=== PATIENT | male | born 1960 | race Caucasian/White ===

== ENCOUNTER 2017-02-16 21:00 | Observation (INO) | payer MEDICARE, OTHER ==
[2017-02-16] MEDS ORDERED: ASPIRIN 81 MG CHEW PO STA (21:36)
[2017-02-16] MEDS ORDERED: IPRATROPIUM-ALBUTEROL 3 ML NEB INHALATION STA (21:36)
--- NOTE | 2017-02-16 21:41 | ED ---
Chest Pain HPI - General Chief Complaint: Chest Pain Stated Complaint: ETOH Time Seen by Provider: 02/16/17 21:04 Source: patient, family Mode of arrival: EMS - History of Present Illness Initial Comments: The patient is a 56 y/o male who presents to the ED with a chief complaint of chest pain and shortness of breath. Patient states that his symptoms have been present over the course the past 2 days. He states that yesterday he had multiple episodes of chest pain. He describes that the pain is located in the epigastric region, rising up into his chest. The patient notes that he has also had intermittent shortness of breath as well. The patient drinks a large amount of alcohol on a daily basis. He takes that he typically drinks a fifth of hard liquor. The patient notes that he has consumed at least a pint of hard liquor today. The patient denies any hx of cardiac disease. The patient notes that he does have a hx of cigarette use and abuse. The patient states that he has never had a cardiac stress test in the past. Patient notes that he does have a history of COPD for which he uses an inhaler. He states his inhaler was exhausted so he used an inhaler of her friend without relief of his symptoms. Patient states that his shortness of breath was so extreme that he could not catch his breath. He states that he received oxygen in route to the hospital and this helped to improve his symptoms. He states that he is asymptomatic here in the ED. He states that his last episode of chest pain was around 2pm today. - Related Data Home Medications Medication Instructions Recorded Confirmed Ascorbic Acid [Vitamin C] 500 mg PO DAILY 02/16/17 02/16/17 Allergies Allergy/AdvReac Type Severity Reaction Status Date / Time No Known Allergies Allergy Verified 02/16/17 22:44 Review of Systems ROS Statement: Those systems with pertinent positive or pertinent negative responses have been documented in the HPI. ROS Other: All systems not noted in ROS Statement are negative. Constitutional: Denies: fever, chills, weakness Eyes: Denies: vision change Respiratory: Reports: dyspnea. Denies: cough, wheezes, hemoptysis, stridor Cardiovascular: Reports: chest pain. Denies: palpitations, dyspnea on exertion , orthopnea, edema Endocrine: Denies: fatigue Gastrointestinal: Denies: abdominal pain, nausea, vomiting, diarrhea, constipation Genitourinary: Denies: urgency, dysuria, frequency, hematuria Musculoskeletal: Denies: back pain Skin: Denies: rash, lesions Neurological: Denies: headache, weakness Psychiatric: Denies: anxiety, depression EKG Findings - EKG Comments: EKG Findings:: EKG demonstrates NSR with a rate of 80. There are no concerning ST-T changes. The patient's QT interval is prolonged at 498. Past Medical History Additional Past Medical History / Comment(s): "bad" left knee, back fractures, bilateral arm fractures. History of Any Multi-Drug Resistant Organisms: None Reported Additional Past Surgical History / Comment(s): splenectomy Past Psychological History: No Psychological Hx Reported Smoking Status: Current every day smoker Past Alcohol Use History: Daily Past Drug Use History: None Reported General Exam General appearance: alert, in no apparent distress, appears intoxicated Head exam: Present: atraumatic, normocephalic Eye exam: Present: normal appearance, PERRL, EOMI. Absent: scleral icterus, conjunctival injection Pupils: Present: normal accommodation, other (pupils are 3mm, equal and reactive ) ENT exam: Present: normal exam, mucous membranes dry Neck exam: Present: normal inspection, full ROM Respiratory exam: Present: normal lung sounds bilaterally. Absent: respiratory distress, wheezes, rales, rhonchi, stridor, chest wall tenderness, accessory muscle use Cardiovascular Exam: Present: regular rate, normal rhythm, normal heart sounds GI/Abdominal exam: Present: soft. Absent: distended, tenderness, guarding, rebound Extremities exam: Present: normal inspection, full ROM, tenderness (tenderness noted in the right lateral shoulder) Neurological exam: Present: alert, oriented X3. Absent: CN II-XII intact Psychiatric exam: Present: normal affect, normal mood. Absent: homicidal ideation, suicidal ideation Skin exam: Present: warm, dry, intact Course Vital Signs 02/16/17 02/16/17 02/16/17 21:06 21:40 23:05 Temperature 98.4 F Pulse Rate 86 84 Respiratory 18 18 Rate Blood Pressure 134/68 O2 Sat by Pulse 96 Oximetry 02/16/17 02/16/17 02/16/17 23:10 23:18 23:20 Temperature Pulse Rate 88 65 Respiratory 16 Rate Blood Pressure 107/64 O2 Sat by Pulse 89 L 95 Oximetry Chest Pain [facility] Patient is a 56-year-old male who presents to ED with a chief complaint of chest pain and shortness of breath. Patient states that his symptoms have developed over the course of the past 2 days. Patient states his chest pain is intermittent in nature. It is located in the epigastric region and right abdomen. Patient notes that he has had shortness of breath associated with his pain as well. Patient has no history of all of them. Check an Alcohol level. Check CBC, CMP and Lipase. Check troponin. D-dimer. BNP. Chest x-ray. Patient is complaining of pain in the right calf region. Rule out DVT in this area. Patient was provided with ASA 324 mg by EMS in route to the hospital. Provide patient with DuoNeb treatment as well. 11:41 PM Patient had one additional episode of shortness of breath while here in the ED with desaturation to SpO2 of 90%. The patient has not had additional episodes of chest pain. Duoneb treatment helped to improve patient's symptoms. However, he still desaturates, particularly when sleeping. Lower extremity doppler was negative for DVT. Trop=Neg. D-Dimer=Neg. Will provide patient with Solumedrol and order scheduled breathing treatments. Provide patient with Doxycycline as well. Patient and updated of findings. Will keep for further evaluation and treatment. 11:[address] Omalley, who accepts placement of patient into Observation for further evaluation by Cardiology. Disposition Clinical Impression: Chest pain, Acute exacerbation of chronic obstructive pulmonary disease (COPD) Disposition: ADMITTED IP TO THIS [facility] Condition: Stable Decision to Admit Reason: Admit from EC Decision Date: 02/16/17 Decision Time: 23:50
[2017-02-16 21:58] LABS: CH 33.4; CHCM 33.4; HDW 2.69; HGB 12.5 gm/dL (13.0-17.5); MCHC 32.8 g/dL (31.0-37.0); MCV 100.8 fL (80.0-100.0); Macrocytosis Slight; Mean Platelet Volume 6.9; RBC 3.77 m/uL (4.30-5.90); RDW 14.9 % (11.5-15.5); WBC 7.1 k/uL (3.8-10.6)
[2017-02-16 22:11] LABS: ALT 37 U/L (21-72); AST 50 U/L (17-59); Alkaline Phosphatase 91 U/L (38-126); Anion Gap 12 mmol/L; Blood Urea Nitrogen 17 mg/dL (9-20); Calcium 9.2 mg/dL (8.4-10.2); Carbon Dioxide 21 mmol/L (22-30); Chloride 111 mmol/L (98-107); Glucose 126 mg/dL (74-99); Non-African American GFR(MDRD) >60 (>60 ml/min/1.73 sqM); Potassium 3.8 mmol/L (3.5-5.1); Sodium 144 mmol/L (137-145); Total Bilirubin 0.3 mg/dL (0.2-1.3); Total Protein 7.8 g/dL (6.3-8.2)
--- NOTE | 2017-02-16 22:11 | XR ---
EXAM: XR Chest, 2 Views CLINICAL HISTORY: Reason: Pain TECHNIQUE: Frontal and lateral views of the chest. COMPARISON: No relevant prior studies available. FINDINGS: Lungs: Unremarkable. No consolidation. Pleural space: Unremarkable. No pneumothorax. Heart: Unremarkable. No cardiomegaly. Mediastinum: Unremarkable. Bones/joints: Old healed rib fractures bilaterally. Cervicothoracic fusion, incompletely imaged. IMPRESSION: No acute cardiopulmonary disease.
--- NOTE | 2017-02-16 22:12 | XR ---
EXAM: XR Left Shoulder Complete, 2 or More Views CLINICAL HISTORY: Reason: Pain TECHNIQUE: Two or more views of the left shoulder. COMPARISON: No relevant prior studies available. FINDINGS: Bones/joints: Unremarkable. No acute fracture. No dislocation. Soft tissues: Unremarkable. IMPRESSION: Normal left shoulder
[2017-02-16 22:16] LABS: Prothrombin Time 10.1 sec (9.0-12.0)
[2017-02-16 22:22] LABS: Alcohol 225 mg/dL
[2017-02-16 22:33] LABS: Add Differential Manual Differential
[2017-02-16 22:36] LABS: Manual Review Performed; Nucleated Red Blood Cells 0 /100 WBC (0-0); Total Cells Counted 100
--- NOTE | 2017-02-16 23:01 | US ---
EXAM: US Left Lower Extremity, venous US Right Lower Extremity, venous CLINICAL HISTORY: Reason: Pain TECHNIQUE: Real-time ultrasound scan of the left lower extremity deep venous system with image documentation. Real-time ultrasound scan of the right lower extremity deep venous system with image documentation. COMPARISON: No relevant prior studies available. FINDINGS: Normal compression, augmentation, respiratory variation. No masses or adenopathy. IMPRESSION: No DVT.
[2017-02-16] MEDS ORDERED: methylPREDNISolone SOD SUCCI 125 MG/2 ML VIAL IV STA (23:39)
[2017-02-16] MEDS ORDERED: DOXYCYCLINE 50 MG CAP PO STA (23:44)
[2017-02-16] MEDS ORDERED: NALOXONE 0.4 MG/ML 1 ML VIAL IV PRN (23:52)
[2017-02-17 00:48] VITALS: BMI 22.4
--- NOTE | 2017-02-17 00:54 | XR ---
EXAM: XR Right Shoulder Complete, 2 or More Views CLINICAL HISTORY: Reason: Pain TECHNIQUE: Two or more views of the right shoulder. COMPARISON: No relevant prior studies available. FINDINGS: Bones/joints: No acute or healing fracture or malalignment. Hypertrophic changes at the distal clavicle suggested on the AP view but no significant narrowing of the subacromial space or convincing evidence for impingement. Type II acromion without subacromial enthesophyte. Soft tissues: Unremarkable. IMPRESSION: No acute osseous abnormality, malalignment or findings to explain the clinical presentation.
[2017-02-17] MEDS ORDERED: IPRATROPIUM-ALBUTEROL 3 ML NEB INHALATION SCH (08:00)
[2017-02-17 08:19] VITALS: BP 171/101; RESP 18; TEMP 97.9
--- NOTE | 2017-02-17 08:41 | P.HPIM ---
History of Present Illness H&P Date: 02/17/17 Chief Complaint: Shortness of breath 56-year-old male admitted via the EMS system after patient activated when he stated that he was complaining of shortness of breath and chest pain. Patient stated his symptoms have been ongoing for the last several days. Patient states he drinks a fifth of hard liquor daily has done so for several years. He just recently within the last 10 days was discharged from a rehab center for alcoholism and depression. Patient does state that he has not taken his blood pressure medication or his "puffer for his COPD because he ran out of them. Patient presented to the emergency room was seen in the emergency room and admitted to the observation unit. Cardiac enzymes 2 sets were negative. At the time of admission the patient stated his symptoms had resolved. Patient states he lives in [facility] and here visiting a friend on disability Review of Systems Essentially unremarkable except as mentioned in the present illness Past Medical History Additional Past Medical History / Comment(s): "bad" left knee, back fractures, bilateral arm fractures. History of Any Multi-Drug Resistant Organisms: None Reported Additional Past Surgical History / Comment(s): splenectomy Past Anesthesia/Blood Transfusion Reactions: No Reported Reaction Past Psychological History: No Psychological Hx Reported Smoking Status: Current every day smoker Past Alcohol Use History: Daily Past Drug Use History: None Reported - Past Family History Father History Unknown: Yes Medications and Allergies Home Medications Medication Instructions Recorded Confirmed Type Ascorbic Acid [Vitamin C] 500 mg PO DAILY 02/16/17 02/17/17 History Allergies Allergy/AdvReac Type Severity Reaction Status Date / Time pollen extracts AdvReac Rash/Hives Verified 02/17/17 00:42 Physical Exam Vitals: Vital Signs Temp Pulse Pulse Resp BP BP BP 02/17/17 08:00 97.9 F 77 18 171/101 02/17/17 04:00 98.4 F 69 16 155/88 02/17/17 01:29 16 02/17/17 00:29 66 16 102/65 02/17/17 00:10 97.9 F 70 18 120/79 Pulse Ox 02/17/17 08:00 98 02/17/17 04:00 98 02/17/17 01:29 02/17/17 00:29 95 02/17/17 00:10 97 Intake and Output 02/16/17 02/17/17 02/17/17 22:59 06:59 14:59 Other: # Voids 1 Weight 77.1 kg GENERAL APPEARANCE: 56 year old patient is alert, oriented, in no acute distress. VITAL SIGNS: Reviewed HEENT: Head is normocephalic and atraumatic. Pupils are equal and reactive. The nares are patent. Oropharynx is clear without lesions. NECK: Supple without lymphadenopathy. Traches midline. HEART: S1, S2. Regular rate and rhythm. Denying chest pain LUNGS: No crackles or wheezes are heard. On room air no conversational dyspnea noted no cough ABDOMEN: Soft, nontender, nondistended with good bowel sounds. No peritoneal signs. No palpable organomegaly or masses. EXTREMITIES: Normal skin color and turgor. No cyanosis, rash, ulceration, clubbing or edema. Radial pedal pulses are 2/4 bilaterally. NEUROLOGICAL: No focal deficits. Strength and sensation are grossly intact. Results CBC & Chem 7: 02/16/17 21:35 02/16/17 21:35 Thrombosis Risk Factor Assmnt - Choose All That Apply Each Factor Represents 1 point: Age 41-60 years Thrombosis Risk Factor Assessment Total Risk Factor Score: 1 Thrombosis Risk Factor Assessment Level: Low Risk Assessment and Plan Plan: Impression Present on admission shortness of breath suspect tracheal bronchitis Active tobacco abuse greater than a 20 year history 1 pack a day Chronic alcoholism daily consumption no evidence of impending DTs Hypertension COPD No evidence of a acute exacerbation Present on admission chest pain atypical features no evidence of acute coronary syndrome Plan Prepped for discharge home patient's been advised to stop smoking cigarettes Patient will follow-up with his PCP and [facility] The above dictated assessment and findings were discussed with dr dong Impression and the plan of care have been dictated as directed. Lisa Pritchett nurse practitioner acting as a scribe for dr dong
[2017-02-17] MEDS ORDERED: LISINOPRIL 20 MG TAB PO SCH (09:00)
[2017-02-17] MEDS ORDERED: PANTOPRAZOLE 40 MG/10 ML VIAL IVP SCH (09:00)
[2017-02-17] MEDS ORDERED: DOXYCYCLINE 50 MG CAP PO SCH (09:00)
[2017-02-17 09:45] VITALS: PULSE 77
--- NOTE | 2017-02-17 10:29 | P.DS ---
Providers Date of admission: 02/16/17 23:52 Expected date of discharge: 02/17/17 Attending physician: Howie Dong Primary care physician: Stated None Hospital Course: The patient is a 56 y/o male who presents to the ED with a chief complaint of chest pain and shortness of breath. Patient states that his symptoms have been present over the course the past 2 days. He states that yesterday he had multiple episodes of chest pain. He describes that the pain is located in the epigastric region, rising up into his chest. The patient notes that he has also had intermittent shortness of breath as well. The patient drinks a large amount of alcohol on a daily basis. He takes that he typically drinks a fifth of hard liquor. The patient notes that he has consumed at least a pint of hard liquor today. The patient denies any hx of cardiac disease. The patient notes that he does have a hx of cigarette use and abuse. The patient states that he has never had a cardiac stress test in the past. Patient notes that he does have a history of COPD for which he uses an inhaler. He states his inhaler was exhausted so he used an inhaler of her friend without relief of his symptoms. Patient states that his shortness of breath was so extreme that he could not catch his breath. He states that he received oxygen in route to the hospital and this helped to improve his symptoms. He states that he is asymptomatic here in the ED. He states that his last episode of chest pain was around 2pm today. Patient stated that he ran out of his medication and was not able to get refills. Patient states he's visiting lives in [facility]. Patient states he spent the last several months in a rehab for alcoholism and depression and is not interested in any further rehab patient states he was able be sober for 9 days after being discharged from the rehab center. Patient states he has had issues with alcoholism since a teenager. Patient states that he was not able to take his medication. The time of discharge patient's shortness of breath and chest pain had resolved cardiac enzymes 2 sets were negative Impression Present on admission shortness of breath suspect tracheal bronchitis Active tobacco abuse greater than a 20 year history 1 pack a day Chronic alcoholism daily consumption no evidence of impending DTs Hypertension COPD No evidence of a acute exacerbation Present on admission chest pain atypical features no evidence of acute coronary syndrome The above dictated assessment and findings were discussed with dr dong Impression and the plan of care have been dictated as directed. Lisa Pritchett nurse practitioner acting as a scribe for dr dong Patient Condition at Discharge: Stable Plan - Discharge Summary New Discharge Prescriptions: Albuterol Inhaler [Ventolin Hfa Inhaler] 1 - 2 puff INHALATION Q6HR PRN #1 inhaler PRN Reason: Shortness Of Breath Doxycycline Hyclate [Vibramycin] 100 mg PO BID #14 cap Lisinopril [Zestril] 40 mg PO DAILY #30 tablet methylPREDNISolone Dose Pack [Medrol Dose Pack] 4 mg PO DIRECTED #21 package Discharge Medication List Ascorbic Acid [Vitamin C] 500 mg PO DAILY 02/16/17 [History] Albuterol Inhaler [Ventolin Hfa Inhaler] 1 - 2 puff INHALATION Q6HR PRN #1 inhaler 02/17/17 [Rx] Doxycycline Hyclate [Vibramycin] 100 mg PO BID #14 cap 02/17/17 [Rx] Doxycycline [Vibramycin] 100 mg PO BID cap 02/17/17 [Rx] Lisinopril [Zestril] 40 mg PO DAILY #30 tablet 02/17/17 [Rx] methylPREDNISolone Dose Pack [Medrol Dose Pack] 4 mg PO DIRECTED #21 package 02/17/17 [Rx] Follow up Appointment(s)/Referral(s): None,Stated [Primary Care Provider] - 1-2 days Howie Dong MD [STAFF PHYSICIAN] - 1 Week Activity/Diet/Wound Care/Special Instructions: Smoking cessation information to be provided patient's been advised stop smoking cigarettes , To follow-up with his own primary care provider and [facility] Discharge Disposition: HOME SELF-CARE
[2017-02-17] MEDS ORDERED: ALBUTEROL INHALER 60 PUFF/8 GM INHALER INHALATION SCH (12:00)
--- NOTE | 2017-02-18 07:53 | HP ---
DATE OF ADMISSION: CHIEF COMPLAINT: ( ). HISTORY OF PRESENT ILLNESS: This is the first admission for this 56-year-old white male who presented with chest pain. He has a family history of heart disease, but even though he has had hypertension and COPD, he is not taking any medications. He smokes and drinks heavily. Enzymes in the emergency room were normal. REVIEW OF SYSTEMS: He has had no hemoptysis, history of orthopnea, PND, palpitations, abdominal pain, ulcer disease, melena, hematochezia, urinary complaints, diabetes, etc. Past medical history, family history, and personal and social histories are unremarkable except that he smokes 1-1/2 packs of cigarettes a day and drinks a pint of alcohol a day. He is not allergic to any medication and is not taking any. He had no significant surgical work. PHYSICAL EXAM: Blood pressure is 135/86 with a pulse of 68, respirations are 19 and he is afebrile. GENERAL: He appeared to be well developed, well nourished and in no acute distress. Skin color is normal. Skin is warm and dry. Lymph nodes are not enlarged. Head, ears, eyes, nose, mouth, and throat are normal. Neck veins not distended. Thyroid is not enlarged. Chest is clear. Cardiac exam is normal. ABDOMEN: Soft, nontender. IMPRESSION: 1. Atypical chest pain. 2. Chronic obstructive pulmonary disease. 3. Alcoholism. PLAN: 1. Bed rest. 2. IV fluids. 3. Serial EKGs and enzymes.
--- NOTE | 2017-02-18 07:55 | PN ---
DATE OF SERVICE: 02/17/2017 CHIEF COMPLAINT: Chest pain and COPD. HISTORY OF PRESENT ILLNESS: The gentleman has done well during the night and he has had no pain. Enzymes were normal. We will send him home later today and this will be arranged by the nurse practitioner. FINAL DIAGNOSES: 1. Chest pain. 2. Chronic obstructive pulmonary disease. 3. Alcoholism. Operations: None. CONSULTATIONS: None. He will be followed up in the office for further evaluation.
== END 2017-02-17 11:40 | disposition home or self-care (01) ==
LOC: EC 21:00 → 3OBS 23:52
PROVIDERS: ADMIT Family Medicine; ATTEND Family Medicine
DX: R07.89 Other chest pain (principal); J44.9 Chronic obstructive pulmonary disease, unspecified; F10.20 Alcohol dependence, uncomplicated; F17.210 Nicotine dependence, cigarettes, uncomplicated; Z91.048 Other nonmedicinal substance allergy status; I10 Essential (primary) hypertension; Z82.5 Family history of asthma and other chronic lower respiratory diseases; Z82.49 Family history of ischemic heart disease and other diseases of the circulatory system; Z90.81 Acquired absence of spleen; R10.13 Epigastric pain; Z91.14 Patient's other noncompliance with medication regimen; M79.661 Pain in right lower leg
CPT/HCPCS: 99285; 36415; 94640 ×2; 93005; 85379; 83880; 80053; 83690; 84484 ×2; 85025; 85610; 85730; 80320; 71020; 73030 ×2; 93970; G0378 ×2; J2930; C9113